=== PATIENT | male | born 1940 | race Caucasian/White ===

== ENCOUNTER 2021-05-30 23:09 | Emergency (ER) | payer MEDICARE ==
[~2021-05-30] VITALS: Ht 177.8 cm; Wt 100.0 kg
[~2021-05-30 23:09] MED LIST: AMLO-186 PO; ASPI-482 PO; ASPI1CPM9 PO; ATOR40TA59 PO; BENA40TA74 PO; CARDIO; CLOP75TA57 PO; GLUC100018 PO; INSU100I27 SQ; INSU100V31 SQ; METO-247 PO; METO50TA29 PO; NIAC1000 PO; NITR0.4T22 SL; PANT40TA6 PO; TRAZ150T49 PO; [UNRECOGNIZED DRUG - OTHER] PO
--- NOTE | 2021-05-30 23:44 | PHYS DOC ---
Past History Past Medical History: CVA, Diabetes, Other Additional Past Medical Histor: sleep Apnea, neuropathy,myelopathy(cer)DDD,patel esop, colitis Past Surgical History: Cholecystectomy, Other Additional Past Surgical Histo: shoulder, cardiac stents, basil cell carc, cataract, colonoscopy Alcohol Use: None Drug Use: None General Adult EDM: Chief Complaint: ABDOMINAL PAIN HPI: HPI: 80-year-old male presents with right lower quadrant abdominal pain. The patient has a history of kidney stones. He has had some discomfort in the right side of his abdomen for about a week. It comes and goes but has been at the low level. He has had pain like this before with previous kidney stones. He usually passes them. He presents tonight because the pain is significantly worse. He rates it a 7 out of 10. He has not had any hematuria. Denies fever or chills. Review of Systems: Review of Systems: Constitutional: Denies fever or chills Eyes: Denies change in visual acuity HENT: Denies nasal congestion or sore throat Respiratory: Denies cough or shortness of breath Cardiovascular: Denies chest pain or edema GI: Denies abdominal pain, nausea, vomiting, bloody stools or diarrhea : Denies dysuria Musculoskeletal: Denies back pain or joint pain Integument: Denies rash Neurologic: Denies headache, focal weakness or sensory changes Endocrine: Denies polyuria or polydipsia Lymphatic: Denies swollen glands Psychiatric: Denies depression or anxiety Allergies: Allergies: Allergies Coded Allergies Type Severity Reaction Last Updated Verified hyoscyamine Allergy Unknown Swelling 12/03/14 Yes Physical Exam: PE: Constitutional: Well developed, well nourished, obese, no acute distress, non- toxic appearance. [] HENT: Normocephalic, atraumatic, bilateral external ears normal, oropharynx moist, no oral exudates, nose normal. [] Eyes: PERRLA, EOMI, conjunctiva normal, no discharge. [] Neck: Normal range of motion, no tenderness, supple, no stridor. [] Cardiovascular: Heart rate regular rhythm, no murmur [] Lungs & Thorax: Bilateral breath sounds clear to auscultation [] Abdomen: Bowel sounds normal, soft, mild right lower quadrant tenderness, no masses, no pulsatile masses. [] Skin: Warm, dry, no erythema, no rash. [] Back: No tenderness, no CVA tenderness. [] Extremities: No tenderness, no cyanosis, no clubbing, ROM intact, no edema. [] Neurologic: Alert and oriented X 3, normal motor function, normal sensory function, no focal deficits noted. [] Psychologic: Affect normal, judgement normal, mood normal. [] Current Patient Data: Vital Signs: Vital Signs Date Time Temp Pulse Resp B/P (MAP) Pulse Ox O2 Delivery O2 Flow Rate FiO2 05/30/21 23:24 97.9 72 18 143/87 (105) 97 Room Air EKG: EKG: Sinus rhythm, rate 61, leftward axis, no ST elevation or depression. [] Radiology/Procedures: Radiology/Procedures: [] Heart Score: C/O Chest Pain: N/A Risk Factors: Risk Factors: DM, Current or recent (<one month) smoker, HTN, HLP, family history of CAD, obesity. Risk Scores: Score 0 - 3: 2.5% MACE over next 6 weeks - Discharge Home Score 4 - 6: 20.3% MACE over next 6 weeks - Admit for Clinical Observation Score 7 - 10: 72.7% MACE over next 6 weeks - Early Invasive Strategies Course & Med Decision Making: Course & Med Decision Making Pertinent Labs and Imaging studies reviewed. (See chart for details) The patient has mildly elevated liver enzymes. He has a creatinine 1.5, but his chart shows 1.8 several years ago. This is likely baseline. His other labs are essentially unremarkable. Patient CT scan does show distal ureteral stone on the right with mild hydronephrosis. It is 5 mm. See official read for more details. This may or may not pass. His urinalysis is negative for infection. I will place the patient on Flomax and give him pain medication for home. He has been given fentanyl in the emergency room. He is stable for discharge at this time. [] Dragon Disclaimer: Dragon Disclaimer: This electronic medical record was generated, in whole or in part, using a voice recognition dictation system. Departure Departure: Impression: Primary Impression: Ureterolithiasis Disposition: HOME / SELF CARE / HOMELESS Condition: STABLE Referrals: DONN LUNA MD (PCP) Patient Instructions: Kidney Stones, Awke-ou-Tuax Scripts Tamsulosin Hcl (FLOMAX) 0.4 Mg Cap.er.24h 1 CAP PO DAILY for kidney stone for 10 Days, #10 CAP 11 Refills Prov: SADAF SANCHES DO 05/31/21 Hydrocodone/Acetaminophen (Hydrocodone-Acetamin 5-325 mg) 1 Each Tablet 1 EACH PO Q4-6HRS PRN for PAIN, #10 TAB Prov: SADAF SANCHES DO 05/31/21 SADAF SANCHES DO May 30, 2021 23:44
[2021-05-30 23:50] LABS: BASO # 0.1 x10^3/uL (0.0-0.2); BASO % 1 % (0-3); EOS # 0.2 x10^3/uL (0.0-0.7); EOS % 3 % (0-3); HEMATOCRIT 43.8 % (39.0-53.0); LYMPH # 1.6 x10^3/uL (1.0-4.8); LYMPH % 24 % (24-48); MEAN CORPUSCULAR HEMOGLOBIN 33 pg (25-35); MEAN CORPUSCULAR HGB CONC 34 g/dL (31-37); MEAN CORPUSCULAR VOLUME 96 fL (79-100); MONO # 0.6 x10^3/uL (0.0-1.1); MONO % 9 % (0-9); NEUT # 4.2 x10^3uL (1.8-7.7); NEUT % 63 % (31-73); PLATELET COUNT 168 x10^3/uL (140-400); RED BLOOD COUNT 4.55 x10^6/uL (4.30-5.70); RED CELL DISTRIBUTION WIDTH 13.7 % (11.5-14.5); WHITE BLOOD COUNT 6.7 x10^3/uL (4.0-11.0)
[2021-05-31] MEDS ORDERED: ONDANSETRON PF 4 MG/2 ML VIAL. IVP ONE
[2021-05-31 00:05] LABS: CALCIUM 8.4 mg/dL (8.5-10.1); CREATININE 1.5 mg/dL (0.7-1.3); GFR 45.3; POTASSIUM 3.4 mmol/L (3.5-5.1)
--- NOTE | 2021-05-31 00:10 | EKG ---
[address] [address] Test Date: 2021-05-31 Test Time: 00:01:29 Pat Name: SHARON ALMAZAN Department: Room: Gender: M Blood Tester Fowl: : 1940 Requested By: SADAF SANCHES Order Number: [id number] Reading MD: Ry Fernandez MD Measurements Intervals [place] Rate: 61 P: 24 SD: 200 QRS: -31 QRSD: 94 T: -20 QT: 442 QTc: 446 Interpretive Statements SINUS RHYTHM CONSIDER PRIOR INFERIOR INFARCT Electronically Signed On 06-03-2021 7:14:02 CDT by Ry Fernandez MD
[2021-05-31 00:12] LABS: ALBUMIN 4.1 g/dL (3.4-5.0); ALBUMIN/GLOBULIN RATIO 1.2 (1.0-1.7); TOTAL BILIRUBIN 1.2 mg/dL (0.2-1.0); TOTAL PROTEIN 7.5 g/dL (6.4-8.2)
[2021-05-31 00:28] LABS: BACTERIA,URINE 0 /HPF (0-FEW); CLARITY,URINE CLEAR; COLOR,URINE YELLOW; GLUCOSE,URINE 100 mg/dL (NEG); NITRITE,URINE NEG (NEG); SQUAMOUS EPITHELIAL CELL,UR OCC /LPF; UROBILINOGEN,URINE 0.2 mg/dL (0.2 mg/dL); WBC,URINE 0 /HPF (0-4)
--- NOTE | 2021-05-31 01:11 | RAD ---
XR CHEST 1V History: Right flank pain. Comparison: 03/10/2014. CT abdomen pelvis 05/30/2021. Technique: AP radiograph of the chest. Findings: The lungs are adequately and symmetrically inflated. Stable linear scarring in the lingula. No airspa ce consolidation, pleural effusion or pneumothorax. The cardiomediastinal silhouette and pulmonary va sculature are within normal limits. No acute osseous abnormality. Soft tissues are unremarkable. Impression: 1. No acute cardiopulmonary process. Electronically signed by: Logan Rajput MD (05/31/2021 1:08 AM) [facility]
--- NOTE | 2021-05-31 01:16 | RAD ---
CT ABDOMEN+PELVIS WO History: Right flank pain. Comparison: None. Technique: CT of the abdomen and pelvis without contrast. Findings: There are few punctate calcified granulomas in the posterior right lower lobe. No airspace consolidat ion. Calcified punctate granulomas in the liver and spleen. The gallbladder is surgically absent. The pancreas and adrenal glands are unremarkable. There is a distal right ureter left measuring 5 mm causing mild right hydronephrosis and hydroureter with right perinephric and periureteral fat stranding. Additional small right nephrolith measures 5 m m at the upper pole. Bilateral renal artery calcifications. The bladder is unremarkable. Heterogeneous prostate with calcifications. The stomach and small bowel are unremarkable. Normal appendix. Unremarkable colon. Moderate to heavy atherosclerotic calcifications of the aorta and branches. No intra-abdominal free a ir or free fluid. Fat-containing right inguinal hernia. No acute osseous abnormality. Impression: 1. Right distal ureterolith measuring 5 mm causing mild right hydronephrosis and hydroureter. 2. Additional right nephrolithiasis. 3. Heterogeneous prominent prostate gland, correlate with exam. ------ Exposure: One or more of the following individualized dose reduction techniques were utilized for thi s examination: 1. Automated exposure control 2. Adjustment of the mA and/or kV according to patient size 3. Use of iterative reconstruction technique. Electronically signed by: Logan Rajput MD (05/31/2021 1:14 AM) [facility]
[2021-05-31] MEDS ORDERED: HYDR-2759 PO (01:26)
[2021-05-31] MEDS ORDERED: TAMS0.4C97 PO (01:32)
[2021-05-31 01:51] VITALS: BP 163/84
[2021-05-31] MEDS ORDERED: HYDROcodone/APAP 7.5/325MG 1 TAB TABLET PO ONE (02:00)
[2021-05-31] MEDS ORDERED: TAMSULOSIN 0.4 MG CAP.ER.24H. PO ONE (02:00)
== END 2021-05-31 02:00 | disposition home or self-care (01) ==
LOC: ER 23:09
DX: N13.2 Hydronephrosis with renal and ureteral calculous obstruction (principal); E11.9 Type 2 diabetes mellitus without complications; Z86.73 Personal history of transient ischemic attack (TIA), and cerebral infarction without residual deficits; Z90.49 Acquired absence of other specified parts of digestive tract; Z87.442 Personal history of urinary calculi; Z88.8 Allergy status to other drugs, medicaments and biological substances
CPT/HCPCS: 36415; 71045; 74176; 80053; 81001; 84484; 85025; 93005; 96374; 96375; 96376; 99285; J2405; J3010

== ENCOUNTER 2021-06-01 22:42 | Emergency (ER) | payer MEDICARE ==
[~2021-06-01] VITALS: Ht 177.8 cm; Wt 103.5 kg
[~2021-06-01 22:42] MED LIST changes: +HYDR-2759 PO; +TAMS0.4C97 PO
--- NOTE | 2021-06-01 23:22 | PHYS DOC ---
Past History Past Medical History: CVA, Diabetes, Other Additional Past Medical Histor: sleep Apnea, neuropathy,myelopathy(cer)DDD,patel esop, colitis Past Surgical History: Cholecystectomy, Other Additional Past Surgical Histo: shoulder, cardiac stents, basil cell carc, cataract, colonoscopy Alcohol Use: None Drug Use: None General Adult EDM: Chief Complaint: FLANK PAIN HPI: HPI: 80-year-old male returns the emergency room with lower abdominal and flank pain. The patient was seen by myself in the emergency room couple days ago diagnosed with a kidney stone. He has taken his pain medication but the pain is not been covered by it. He could not wait to call a urologist tomorrow. Review of Systems: Review of Systems: Constitutional: Denies fever or chills Eyes: Denies change in visual acuity HENT: Denies nasal congestion or sore throat Respiratory: Denies cough or shortness of breath Cardiovascular: Denies chest pain or edema GI: Lower abdominal pain, nausea. Denies vomiting, bloody stools or diarrhea : Denies dysuria Musculoskeletal: Denies back pain or joint pain Integument: Denies rash Neurologic: Denies headache, focal weakness or sensory changes Endocrine: Denies polyuria or polydipsia Lymphatic: Denies swollen glands Psychiatric: Denies depression or anxiety Allergies: Allergies: Allergies Coded Allergies Type Severity Reaction Last Updated Verified hyoscyamine Allergy Unknown Swelling 12/03/14 Yes Physical Exam: PE: Constitutional: Well developed, well nourished, moderate acute distress, non- toxic appearance. [] HENT: Normocephalic, atraumatic, bilateral external ears normal, oropharynx moist, no oral exudates, nose normal. [] Eyes: PERRLA, EOMI, conjunctiva normal, no discharge. [] Neck: Normal range of motion, no tenderness, supple, no stridor. [] Cardiovascular:Heart rate regular rhythm, no murmur [] Lungs & Thorax: Bilateral breath sounds clear to auscultation [] Abdomen: Bowel sounds normal, soft, no tenderness, no masses, no pulsatile masses. [] Skin: Warm, dry, no erythema, no rash. [] Back: No tenderness, no CVA tenderness. [] Extremities: No tenderness, no cyanosis, no clubbing, ROM intact, no edema. [] Neurologic: Alert and oriented X 3, normal motor function, normal sensory function, no focal deficits noted. [] Psychologic: Affect normal, judgement normal, mood normal. [] EKG: EKG: [] Radiology/Procedures: Radiology/Procedures: [] Impressions: EXAMINATION: CT ABDOMEN+PELVIS WO CLINICAL HISTORY: Flank pain, kidney stone, worse pain TECHNIQUE: Imaging of the abdomen and pelvis was performed without intravenous contrast using standard technique, scanning from just above the dome of the diaphragm to the symphysis pubis. Unenhanced imaging is limited for the evaluation of some intra-abdominal and pelvic pathology. CT Dose Reduction Employed: One or more of the following individualized dose reduction techniques were utilized for this examination: 1. Automated exposure control 2. Adjustment of the mA and/or kV according to patient size 3. Use of iterative reconstruction technique. COMPARISON: 05/30/2021 FINDINGS/ IMPRESSION: 5 mm calculus at the right ureterovesical junction with essentially unchanged [id number] hydroureteronephrosis and right perinephric stranding. This likely represents slight interval advancement of the previously noted calculus in the distal right ureter. Remainder of the study otherwise unchanged. Electronically signed by: Carroll Cavazos DO (06/02/2021 12:47 AM) [facility] DICTATED AND SIGNED BY: CARROLL CAVAZOS DO DATE: 06/02/2143 CC: SADAF SANCHES DO; DONN LUNA MD ~ Heart Score: C/O Chest Pain: N/A Risk Factors: Risk Factors: DM, Current or recent (<one month) smoker, HTN, HLP, family history of CAD, obesity. Risk Scores: Score 0 - 3: 2.5% MACE over next 6 weeks - Discharge Home Score 4 - 6: 20.3% MACE over next 6 weeks - Admit for Clinical Observation Score 7 - 10: 72.7% MACE over next 6 weeks - Early Invasive Strategies Course & Med Decision Making: Course & Med Decision Making Pertinent Labs and Imaging studies reviewed. (See chart for details) The patient continues to have a distal ureteral stone. It has moved to the ureterovesicular junction. The patient was in quite a bit of pain but we were able to control it with IV pain medication. Creatinine is stable at 1.5. Advised the patient to call his urologist first thing in the morning to discuss options especially but does not pass in the next day or 2. He is stable for discharge at this time. [] Dragon Disclaimer: Dragon Disclaimer: This electronic medical record was generated, in whole or in part, using a voice recognition dictation system. Departure Departure: Impression: Primary Impression: Kidney stone Disposition: HOME / SELF CARE / HOMELESS Condition: STABLE Referrals: DONN LUNA MD (PCP) Patient Instructions: Kidney Stones, [id number] SADAF SANCHES DO Jun 01, 2021 23:22
[2021-06-01] MEDS ORDERED: ONDANSETRON PF 4 MG/2 ML VIAL. IVP ONE (23:45)
[2021-06-01] MEDS ORDERED: HYDROmorphone PF 1 MG/ML DISP.SYRIN IVP ONE (23:45)
[2021-06-01] MEDS ORDERED: IV NORMAL SALINE 1,000ML 1,000 ML IV ONE (23:45)
[2021-06-01 23:46] LABS: CLARITY,URINE CLEAR; COLOR,URINE YELLOW
[2021-06-01 23:47] LABS: BACTERIA,URINE 0 /HPF (0-FEW); GLUCOSE,URINE NEG (NEG); NITRITE,URINE NEG (NEG); UROBILINOGEN,URINE 0.2 mg/dL (0.2 mg/dL); WBC,URINE OCC /HPF (0-4)
[2021-06-02 00:02] LABS: CALCIUM 8.8 mg/dL (8.5-10.1); CREATININE 1.5 mg/dL (0.7-1.3); GFR 45.3; POTASSIUM 3.4 mmol/L (3.5-5.1)
[2021-06-02 00:08] LABS: ALBUMIN 3.9 g/dL (3.4-5.0); ALBUMIN/GLOBULIN RATIO 1.1 (1.0-1.7); TOTAL BILIRUBIN 1.4 mg/dL (0.2-1.0); TOTAL PROTEIN 7.6 g/dL (6.4-8.2)
--- NOTE | 2021-06-02 00:49 | RAD ---
EXAMINATION: CT ABDOMEN+PELVIS WO CLINICAL HISTORY: Flank pain, kidney stone, worse pain TECHNIQUE: Imaging of the abdomen and pelvis was performed without intravenous contrast using standar d technique, scanning from just above the dome of the diaphragm to the symphysis pubis. Unenhanced i maging is limited for the evaluation of some intra-abdominal and pelvic pathology. CT Dose Reduction Employed: One or more of the following individualized dose reduction techniques wer e utilized for this examination: 1. Automated exposure control 2. Adjustment of the mA and/or kV ac cording to patient size 3. Use of iterative reconstruction technique. COMPARISON: 05/30/2021 FINDINGS/ IMPRESSION: 5 mm calculus at the right ureterovesical junction with essentially unchanged ohcy-um-ttyofals hydrou reteronephrosis and right perinephric stranding. This likely represents slight interval advancement o f the previously noted calculus in the distal right ureter. Remainder of the study otherwise unchanged. Electronically signed by: Carroll Ordaz DO (06/02/2021 12:47 AM) [facility]
[2021-06-02] MEDS ORDERED: OXYC-325 PO (00:58)
[2021-06-02 01:14] VITALS: BP 160/72
[2021-06-02] MEDS ORDERED: oxyCODONE/APAP 7.5/325 1 TAB TABLET PO ONE (01:30)
== END 2021-06-02 01:18 | disposition home or self-care (01) ==
LOC: ER 22:42
DX: N13.2 Hydronephrosis with renal and ureteral calculous obstruction (principal); E11.9 Type 2 diabetes mellitus without complications; Z86.73 Personal history of transient ischemic attack (TIA), and cerebral infarction without residual deficits; Z88.8 Allergy status to other drugs, medicaments and biological substances
CPT/HCPCS: 36415; 74176; 80053; 81001; 96361; 96374; 96375; 99284; J1170; J2405; J7030

== ENCOUNTER 2021-06-03 21:44 | Emergency (ER) | payer MEDICARE ==
[~2021-06-03] VITALS: Ht 177.8 cm; Wt 103.5 kg
[~2021-06-03 21:44] MED LIST changes: +OXYC-325 PO
--- NOTE | 2021-06-03 22:03 | PHYS DOC ---
Past History Past Medical History: CVA, Diabetes, Other Additional Past Medical Histor: sleep Apnea, neuropathy,myelopathy(cer)DDD,patel esop, colitis Past Surgical History: Cholecystectomy, Other Additional Past Surgical Histo: shoulder, cardiac stents, basil cell carc, cataract, colonoscopy Alcohol Use: Rarely Drug Use: None Adult General Chief Complaint Chief Complaint: ABDOMINAL PAIN HPI HPI Patient is a 80-year-old male with a recent past medical history significant for right sided kidney stone which passed into the distal ureter at about 5 mm in size. Patient stated he was here 2 days ago for this and was given some Percocet for home. States he has an appointment in the morning with his urologist. States he was told he could take his Percocets twice daily which he has been doing. States it helps initially for the first couple hours and then wears off. States he was not taking any other medications and set around in pain until his next dose. Denies any other recent traumas, travels, illness, fevers, chest pain, shortness of breath, other abdominal pain, vomiting but did have some nausea, diarrhea, dysuria, hematuria. Review of Systems Review of Systems Review of systems otherwise unremarkable except noted in HPI Allergies Allergies Allergies Coded Allergies Type Severity Reaction Last Updated Verified hyoscyamine Allergy Unknown Swelling 12/03/14 Yes Physical Exam Physical Exam Constitutional: Well developed, well nourished, no acute distress, non-toxic appearance. [] HENT: Normocephalic, atraumatic, Eyes: conjunctiva normal, no discharge. [] Neck: Normal range of motion, no tenderness, supple, no stridor. [] Cardiovascular:Heart rate regular rhythm, no murmur [] Lungs & Thorax: No respiratory distress Abdomen: soft, no tenderness, no masses, no pulsatile masses. [] Skin: Warm, dry, no erythema, no rash. [] Back: No tenderness, no CVA tenderness. [] Extremities: No tenderness, no cyanosis, no clubbing, ROM intact, no edema. [] Neurologic: Alert and oriented X 3, no focal deficits noted. [] Psychologic: Affect normal, judgement normal, mood normal. [] EKG EKG [] Radiology/Procedures Radiology/Procedures [] Heart Score C/O Chest Pain: No Risk Factors: Risk Factors: DM, Current or recent (<one month) smoker, HTN, HLP, family history of CAD, obesity. Risk Scores: Risk Factors: DM, Current or recent (<one month) smoker, HTN, HLP, family history of CAD, obesity. Course & Med Decision Making Course & Med Decision Making Patient is a 80-year-old male with a right-sided kidney stone who presents for pain control Vital signs notable for hypertension and tachycardia. Physical exam noted above. Given pain medicine On reassessment patient stated pain significantly improved. Stated he did not realize he could take his home pain medicine more than 1 every 12 hours. Discussed and recommended taking pain medicine at home every 4-6 hours in addition to some ibuprofen as long as he can tolerate it. Advised to keep his appointment in the morning with his urologist. Gave return precautions to the ED. Patient grateful, verbalized understanding and agreed with plan of discharge. [] Dragon Disclaimer Dragon Disclaimer This electronic medical record was generated, in whole or in part, using a voice recognition dictation system. Departure Departure: Impression: Primary Impression: Ureterolithiasis Disposition: HOME / SELF CARE / HOMELESS Condition: STABLE Referrals: DONN LUNA MD (PCP) Patient Instructions: Diet for Kidney Stones, Kidney Stones, Ureteral Colic Additional Instructions: Thank you for coming into the emergency department tonight and allowing us to take care of you. Please read the attached information carefully to go over things we discussed. Please begin taking your home Percocet at 1 every 4-6 hours as needed. As long as you are allowed to take ibuprofen I would take 600 mg of ibuprofen every 6 hours as well. You can add Benadryl as well as needed before bedtime. Please keep your upcoming appointment in the morning with your urologist to update on your ED visit. Please come back with new or concerning symptoms as we discussed. PAPO BARKER MD Jun 03, 2021 22:03
[2021-06-03] MEDS ORDERED: KETOROLAC 30 MG/ML VIAL. IM ONE (22:30)
[2021-06-03] MEDS ORDERED: MORPHINE SULFATE 4 MG/ML DISP.SYRIN. IM ONE (22:30)
[2021-06-03 22:50] VITALS: BP 156/83
== END 2021-06-03 22:50 | disposition home or self-care (01) ==
LOC: ER 21:44
DX: N20.1 Calculus of ureter (principal); E11.40 Type 2 diabetes mellitus with diabetic neuropathy, unspecified; Z86.73 Personal history of transient ischemic attack (TIA), and cerebral infarction without residual deficits; Z88.8 Allergy status to other drugs, medicaments and biological substances
CPT/HCPCS: 96372; 99284; J1885; J2270